=== PATIENT | female | born 1955 | race Caucasian/White ===

== ENCOUNTER 2017-07-07 16:01 | Inpatient (IN) | payer OTHER ==
[2017-07-07 18:45] VITALS: BMI 17.5
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
[2017-07-07] MEDS ORDERED: MENTHOL/PHENOL 1 EACH UD MM PRN (21:34)
[2017-07-07] MEDS ORDERED: P-EPHED 60MG/TRIPROLIDI 2.5MG TABLET PO PRN (21:34)
[2017-07-07] MEDS ORDERED: MAGNESIUM HYDROX 2400MG/30ML ORAL SUSPENSION 30 ML CUP PO PRN (21:34)
[2017-07-07] MEDS ORDERED: hydrOXYzine PAMOATE 50 MG CAPSULE (FP) PO PRN (21:34)
[2017-07-07] MEDS ORDERED: LOPERAMIDE HCL 2 MG CAPSULE PO PRN (21:34)
[2017-07-07] MEDS ORDERED: chlordiazePOXIDE HCL 25 MG CAPSULE PO PRN (21:34)
[2017-07-07] MEDS ORDERED: MAG HYDROX/AL HYDROX/SIMETH 30 ML UNIT-DOSE CUP PO PRN (21:34)
[2017-07-07] MEDS ORDERED: diphenhydrAMINE HCL 50 MG CAPSULE PO PRN (21:34)
[2017-07-07] MEDS ORDERED: ACETAMINOPHEN 325 MG TABLET (FP) PO PRN (21:34)
[2017-07-07] MEDS ORDERED: NICOTINE POLACRILEX 2 MG GUM BC PRN (21:34)
[2017-07-07] MEDS ORDERED: MAGNESIUM CITRATE 300 ML BOTTLE PO PRN (21:34)
[2017-07-07] MEDS ORDERED: IBUPROFEN 400 MG TABLET (FP) PO PRN (21:34)
[2017-07-07] MEDS: THIAMINE HCL 100 MG TABLET (FP) PO SCH (22:45)
[2017-07-07] MEDS: chlordiazePOXIDE HCL 25 MG CAPSULE PO SCH (22:45)
[2017-07-07] MEDS: NICOTINE 14 MG/24 HOURS TOPICAL PATCH TD SCH (23:01)
[2017-07-08] MEDS: chlordiazePOXIDE HCL 25 MG CAPSULE PO SCH ×4 (06:22→22:19)
[2017-07-08] MEDS ORDERED: METHADONE HCL 40 MG DISPERSABLE TABLET PO SCH (07:15)
[2017-07-08] MEDS ORDERED: METHADONE HCL 40 MG DISPERSABLE TABLET ONE (09:21)
[2017-07-08] MEDS ORDERED: METHADONE HCL 10 MG TABLET ONE (09:21)
[2017-07-08 09:59] LABS: MCH 30.4 pg (25.7-33.7); MEAN CELL VOLUME 91.9 fl (80-96); PLATELET COUNT 376 K/MM3 (134-434); RDW 14.8 % (11.6-15.6); WHITE BLOOD COUNT 4.7 K/mm3 (4.0-10.0)
[2017-07-08 10:01] LABS: ALBUMIN 2.8 g/dl (3.4-5.0); ANION GAP 5 (8-16); BILIRUBIN,TOTAL 0.4 mg/dL (0.2-1.0); CO2 29 mmol/L (21-32); GLUCOSE,RANDOM 95 mg/dL (74-106); SGOT/AST 15 U/L (15-37); SGPT/ALT 20 U/L (12-78); TOT PROT 5.5 g/dl (6.4-8.2)
[2017-07-08 10:04] LABS: ALK PHOS 79 U/L (45-117); CALCIUM 8.8 mg/dL (8.5-10.1); CREATININE 0.6 mg/dL (0.55-1.02)
[2017-07-08] MEDS: PRENATAL VITAMINS W/ FOLIC ACID TABLET (FP) PO SCH (10:18)
[2017-07-08] MEDS: ASPIRIN 81 MG CHEWABLE TABLETS PO SCH (10:18)
--- NOTE | 2017-07-08 10:18 | PN ---
S CIWA - CIWA Score Nausea/Vomitin Muscle Tremors: 3 Anxiety: 2 Agitation: 2 Paroxysmal Sweats: 1-Minimal Palms Moist Orientation: 0-Oriented Tacttile Disturbances: 1-Very Mild Itch/Numbness Auditory Disturbances: 1-Very Mild Visual Disturbances: 1-Very Mild Sensitivity Headache: 2-Mild CIWA-Ar Total Score: 16 S Progress Note (SOAP) Subjective: alert,irritable,anxious,interrupted sleep,tremor Objective: 07/08/17 10:17 Vital Signs Temperature 98.5 F 07/08/17 09:51 Pulse Rate 758 H 07/08/17 09:51 Respiratory Rate 18 07/08/17 09:51 Blood Pressure 150/100 07/08/17 09:51 O2 Sat by Pulse Oximetry (%) ekg nsr,normal ecg Laboratory Last Values WBC 4.7 K/mm3 (4.0-10.0) D 07/08/17 07:00 RBC 3.91 M/mm3 (3.60-5.2) 07/08/17 07:00 Hgb 11.9 GM/dL (10.7-15.3) 07/08/17 07:00 Hct 35.9 % (32.4-45.2) 07/08/17 07:00 MCV 91.9 fl (80-96) 07/08/17 07:00 MCH 30.4 pg (25.7-33.7) 07/08/17 07:00 MCHC 33.0 g/dl (32.0-36.0) 07/08/17 07:00 RDW 14.8 % (11.6-15.6) 07/08/17 07:00 Plt Count 376 K/MM3 (134-434) 07/08/17 07:00 MPV 7.0 fl (7.5-11.1) L D 07/08/17 07:00 Sodium 140 mmol/L (136-145) 07/08/17 07:00 Potassium 4.4 mmol/L (3.5-5.1) 07/08/17 07:00 Chloride 106 mmol/L (98-107) 07/08/17 07:00 Carbon Dioxide 29 mmol/L (21-32) 07/08/17 07:00 Anion Gap 5 (8-16) L 07/08/17 07:00 BUN 14 mg/dL (7-18) 07/08/17 07:00 Creatinine 0.6 mg/dL (0.55-1.02) D 07/08/17 07:00 Creat Clearance w eGFR > 60 (>60) 07/08/17 07:00 Random Glucose 95 mg/dL (74-106) 07/08/17 07:00 Calcium 8.8 mg/dL (8.5-10.1) 07/08/17 07:00 Total Bilirubin 0.4 mg/dL (0.2-1.0) 07/08/17 07:00 AST 15 U/L (15-37) 07/08/17 07:00 ALT 20 U/L (12-78) 07/08/17 07:00 Alkaline Phosphatase 79 U/L (45-117) 07/08/17 07:00 Total Protein 5.5 g/dl (6.4-8.2) L 07/08/17 07:00 Albumin 2.8 g/dl (3.4-5.0) L 07/08/17 07:00 Assessment: 07/08/17 10:18 withdrawal symptom Plan: continue detox
[2017-07-08] MEDS: METHADONE 40 MG, METHADONE 10 MG PO SCH (10:19)
[2017-07-08] MEDS: NICOTINE 14 MG/24 HOURS TOPICAL PATCH TD SCH (10:21)
[2017-07-08] MEDS ORDERED: ZOLPIDEM TARTRATE 10 MG TABLET (PARK CARE ONLY) PO PRN (16:11)
--- NOTE | 2017-07-08 16:58 | CONSULT ---
[facility] Psychiatric Consult - Data Date of interview: 07/08/17 Admission source: [facility] Identifying data: This is 61 years old female with psychiatric hospitalization history intoxicated with: Alcohol and Cociane Substance Abuse History: - Smoking Cessation. Smoking history: Current every day smoker. Have you smoked in the past 12 months: Yes. Aproximately how many cigarettes per day: 5. Cigars Per Day: 0. Hx Chewing Tobacco Use: No. Initiated information on smoking cessation: Yes. 'Breaking Loose' booklet given : 07/07/17. - Substance & Tx. History. Hx Alcohol Use: Yes. Hx Substance Use : Yes. Substance Use Type: Alcohol, Cocaine, Opiates. Hx Substance Use Treatment: Yes ([facility]). - Substances Abused. Alcohol. Route: Oral. Frequency: Daily. Amount used: liquor- 2 pints. Age of first use: 22. Date of Last Use: 07/06/17. HEROIN. Route: Inhalation. Frequency: 1-2 times per week. Amount used: 2 BAGS. Age of first use: 51. Date of Last Use: . COCAine. Route: Inhalation. Frequency: 1-3 times last 30 days. Amount used: 1/2 GM. Age of first use: 22. Date of Last Use: 07/06/17 Medical History: MMTP 50mg per day, Asthma Psychiatric History: Patient reports history of anxiety and depression, reports most recent psychiatoruc admiossion on: at [facility] for , reports taking prior to admission: Abilify 10mg poqd. Seroquel 50mg po bid. Ambien 10mg po qhs Physical/Sexual Abuse/Trauma History: Denies Additional Comment: Abilify 10mg poqd. Seroquel 50mg po bid. Ambien 10mg po qhs Mental Status Exam - Mental Status Exam Alert and Oriented to: Person Cognitive Function: Fair Patient Appearance: Unkempt Mood: Sad Patient Behavior: Cooperative Speech Pattern: Appropriate Voice Loudness: Mildly Soft/Quiet Thought Process: Circumstantial Thought Disorder: Being Controlled Hallucinations: Denies Suicidal Ideation: Denies Homicidal Ideation: Denies Insight/Judgement: Fair Sleep: Difficulty falling asleep Appetite: Fair Muscle strength/Tone: Normal Gait/Station: Shuffling Additional Comments: Abilify 10mg poqd. Seroquel 50mg po bid. Ambien 10mg po qhs Psychiatric Findings - Problem List ([place] 1, 2,3) (1) Alcohol dependence with uncomplicated withdrawal Current Visit: Yes Status: Chronic (2) Cocaine dependence, uncomplicated Current Visit: Yes Status: Chronic (3) Nicotine dependence Current Visit: Yes Status: Chronic Qualifiers: Nicotine product type: cigarettes Substance use status: uncomplicated Qualified Code(s): F17.210 - Nicotine dependence, cigarettes, uncomplicated (4) Uncomplicated opioid dependence Current Visit: Yes Status: Chronic (5) Alcohol dependence Current Visit: No Status: Active (6) Drug-induced mood disorder Current Visit: Yes Status: Acute - Initial Treatment Plan Initial Treatment Plan: Abilify 10mg poqd. Seroquel 50mg po bid. Ambien 10mg po qhs
[2017-07-08] MEDS: ARIPiprazole 10 MG TABLET PO SCH (17:40)
[2017-07-08] MEDS: QUEtiapine FUMARATE 50 MG TABLET PO SCH (22:19)
[2017-07-08] MEDS: THIAMINE HCL 100 MG TABLET (FP) PO SCH (22:19)
[2017-07-08] MEDS: guaiFENesin/D-METHORPHAN HB 10 ML UNIT-DOSE CUPS PO PRN (22:19)
--- NOTE | 2017-07-08 22:33 | EKG ---
Test Reason : Blood Pressure : / mmHG Vent. Rate : 068 BPM Atrial Rate : 068 BPM P-R Int : 152 ms QRS Dur : 072 ms QT Int : 406 ms P-R-T Axes : 067 -26 052 degrees QTc Int : 431 ms NORMAL SINUS RHYTHM ATRIAL ABNORMALITY NONSPECIFIC ST-T ABNORMALITIES NO PREVIOUS ECGS AVAILABLE REPEAT EKG IF CLINICALLY INDICATED Confirmed by RAULITO TREADWELL MD ([id number]) on 07/08/2017 10:33:01 PM Referred By: Confirmed By:RAULITO TREADWELL MD
[2017-07-09] MEDS ORDERED: METHADONE HCL 10 MG TABLET ONE (04:09)
[2017-07-09] MEDS ORDERED: METHADONE HCL 40 MG DISPERSABLE TABLET ONE (04:09)
[2017-07-09] MEDS: chlordiazePOXIDE HCL 25 MG CAPSULE PO SCH ×3 (06:13→17:27)
[2017-07-09] MEDS: METHADONE 40 MG, METHADONE 10 MG PO SCH (06:13)
[2017-07-09] MEDS: guaiFENesin/D-METHORPHAN HB 10 ML UNIT-DOSE CUPS PO PRN ×3 (08:14→20:28)
[2017-07-09] MEDS ORDERED: CYCLOBENZAPRINE HCL 10 MG TABLET (FP) PO PRN (10:00)
[2017-07-09] MEDS: ASPIRIN 81 MG CHEWABLE TABLETS PO SCH (10:19)
[2017-07-09] MEDS: ARIPiprazole 10 MG TABLET PO SCH (10:19)
[2017-07-09] MEDS: PRENATAL VITAMINS W/ FOLIC ACID TABLET (FP) PO SCH (10:19)
[2017-07-09] MEDS: QUEtiapine FUMARATE 50 MG TABLET PO SCH ×2 (10:19→22:04)
[2017-07-09] MEDS: NICOTINE 14 MG/24 HOURS TOPICAL PATCH TD SCH (10:20)
[2017-07-09] MEDS ORDERED: ALBUTEROL SO4 6.7 GM HFA INHALER IH PRN (10:24)
[2017-07-09] MEDS ORDERED: CYCLOBENZAPRINE HCL 10 MG TABLET (FP) PO ONE (10:25)
--- NOTE | 2017-07-09 11:17 | PN ---
S CIWA - CIWA Score Nausea/Vomitin Muscle Tremors: 3 Anxiety: 2 Agitation: 2 Paroxysmal Sweats: No Perspiration Orientation: 0-Oriented Tacttile Disturbances: 1-Very Mild Itch/Numbness Auditory Disturbances: 1-Very Mild Visual Disturbances: 1-Very Mild Sensitivity Headache: 2-Mild CIWA-Ar Total Score: 15 S Progress Note (SOAP) Subjective: alert,irritable,anxious,interrupted,wheezing Objective: 07/09/17 11:17 Vital Signs Temperature 97.5 F L 07/09/17 09:29 Pulse Rate 102 H 07/09/17 09:29 Respiratory Rate 16 07/09/17 09:29 Blood Pressure 137/73 07/09/17 09:29 O2 Sat by Pulse Oximetry (%) 07/09/17 11:19 Laboratory Last Values WBC 4.7 K/mm3 (4.0-10.0) D 07/08/17 07:00 RBC 3.91 M/mm3 (3.60-5.2) 07/08/17 07:00 Hgb 11.9 GM/dL (10.7-15.3) 07/08/17 07:00 Hct 35.9 % (32.4-45.2) 07/08/17 07:00 MCV 91.9 fl (80-96) 07/08/17 07:00 MCH 30.4 pg (25.7-33.7) 07/08/17 07:00 MCHC 33.0 g/dl (32.0-36.0) 07/08/17 07:00 RDW 14.8 % (11.6-15.6) 07/08/17 07:00 Plt Count 376 K/MM3 (134-434) 07/08/17 07:00 MPV 7.0 fl (7.5-11.1) L D 07/08/17 07:00 Sodium 140 mmol/L (136-145) 07/08/17 07:00 Potassium 4.4 mmol/L (3.5-5.1) 07/08/17 07:00 Chloride 106 mmol/L (98-107) 07/08/17 07:00 Carbon Dioxide 29 mmol/L (21-32) 07/08/17 07:00 Anion Gap 5 (8-16) L 07/08/17 07:00 BUN 14 mg/dL (7-18) 07/08/17 07:00 Creatinine 0.6 mg/dL (0.55-1.02) D 07/08/17 07:00 Creat Clearance w eGFR > 60 (>60) 07/08/17 07:00 Random Glucose 95 mg/dL (74-106) 07/08/17 07:00 Calcium 8.8 mg/dL (8.5-10.1) 07/08/17 07:00 Total Bilirubin 0.4 mg/dL (0.2-1.0) 07/08/17 07:00 AST 15 U/L (15-37) 07/08/17 07:00 ALT 20 U/L (12-78) 07/08/17 07:00 Alkaline Phosphatase 79 U/L (45-117) 07/08/17 07:00 Total Protein 5.5 g/dl (6.4-8.2) L 07/08/17 07:00 Albumin 2.8 g/dl (3.4-5.0) L 07/08/17 07:00 RPR Titer Reactive 1:4 (NONREACTIVE) H 07/08/17 07:00 T.pallidum Ab (MHA) Previously reactive (NONREACTIVE) 07/08/17 07:00 Hepatitis C Antibody 0.1 s/co ratio (0.0-0.9) 07/07/17 07:00 patient had been treated for syphilis in the past Assessment: 07/09/17 11:20 withdrawal symptom Plan: continue detox,albuterol inhaler,ensure plus 120 mls po bid
[2017-07-09] MEDS: THIAMINE HCL 100 MG TABLET (FP) PO SCH (22:04)
[2017-07-09] MEDS: chlordiazePOXIDE 5 MG CAPSULE PO SCH (22:04)
[2017-07-10] MEDS ORDERED: METHADONE HCL 40 MG DISPERSABLE TABLET ONE (03:52)
[2017-07-10] MEDS ORDERED: METHADONE HCL 10 MG TABLET ONE (03:52)
[2017-07-10] MEDS: METHADONE 40 MG, METHADONE 10 MG PO SCH (06:36)
[2017-07-10] MEDS: chlordiazePOXIDE 5 MG CAPSULE PO SCH ×3 (06:36→17:39)
[2017-07-10] MEDS: guaiFENesin/D-METHORPHAN HB 10 ML UNIT-DOSE CUPS PO PRN (10:18)
[2017-07-10] MEDS: ASPIRIN 81 MG CHEWABLE TABLETS PO SCH (10:19)
[2017-07-10] MEDS: QUEtiapine FUMARATE 50 MG TABLET PO SCH ×2 (10:19→23:44)
[2017-07-10] MEDS: PRENATAL VITAMINS W/ FOLIC ACID TABLET (FP) PO SCH (10:19)
[2017-07-10] MEDS: NICOTINE 14 MG/24 HOURS TOPICAL PATCH TD SCH (10:19)
[2017-07-10] MEDS: ARIPiprazole 10 MG TABLET PO SCH (10:19)
--- NOTE | 2017-07-10 12:26 | PN ---
S Progress Note (SOAP) Subjective: alert,interrupted sleep, Objective: 07/10/17 12:25 Vital Signs Temperature 98.8 F 07/10/17 09:44 Pulse Rate 95 H 07/10/17 09:44 Respiratory Rate 16 07/10/17 09:44 Blood Pressure 110/71 07/10/17 09:44 O2 Sat by Pulse Oximetry (%) Assessment: 07/10/17 12:25 withdrawal symptom Plan: continue detox,discharge in am
--- NOTE | 2017-07-10 15:26 | PN ---
[facility] Progress Note Note: called to evaluate patient who fell ,slipped off the chair no head injury complaint of pain in the back,right hip and right foot ambulation with pain bp 132/60,p83,r16,t96.7 no painin the neck fall treatment initiate fall protocol 2 fall precaution to er for evaluation and treatment spoke with Macey rooney rn at [facility] to be transported by [facility]
[2017-07-10 16:10] LABS: URINE APPEARANCE CLOUDY; URINE BILIRUBIN NEGATIVE (NEGATIVE); URINE BLOOD NEGATIVE (NEGATIVE); URINE COLOR AMBER; URINE GLUCOSE (UA) NEGATIVE (NEGATIVE); URINE KETONE NEGATIVE (NEGATIVE); URINE NITRITE NEGATIVE (NEGATIVE); URINE PROTEIN NEGATIVE (NEGATIVE); URINE UROBILINOGEN NEGATIVE mg/dL (0.2-1.0)
[2017-07-10 16:14] LABS: URINE LEUK ESTERASE 1+ (NEGATIVE)
[2017-07-10 16:16] LABS: CALCIUM OXALATE CRYSTALS RARE /hpf (NONE SEEN); URINE BACTERIA RARE /hpf (NONE SEEN); URINE HYALINE CAST 1 /lpf; URINE MUCUS FEW; URINE RBC 12 /hpf (0-3); URINE WBC 7 /hpf (3-5)
[2017-07-10] MEDS: chlordiazePOXIDE HCL 10 MG CAPSULE PO SCH (23:44)
[2017-07-10] MEDS: THIAMINE HCL 100 MG TABLET (FP) PO SCH (23:44)
[2017-07-11] MEDS: METHADONE 40 MG, METHADONE 10 MG PO SCH (08:00)
[2017-07-11] MEDS ORDERED: METHADONE HCL 10 MG TABLET PO ONE (08:14)
[2017-07-11] MEDS ORDERED: chlordiazePOXIDE HCL 10 MG CAPSULE PO ONE (08:14)
[2017-07-11] MEDS ORDERED: METHADONE 40 MG, METHADONE 10 MG PO ONE (08:20)
--- NOTE | 2017-07-11 08:34 | PN ---
S Progress Note (SOAP) Subjective: patient has history of a fall yesterday evaluated in [facility] er,clear to return to detox Objective: 07/11/17 08:30 Vital Signs Temperature 98.1 F 07/11/17 07:27 Pulse Rate 79 07/11/17 07:27 Respiratory Rate 18 07/11/17 07:27 Blood Pressure 136/84 07/11/17 07:27 O2 Sat by Pulse Oximetry (%) patient is ambulating 07/11/17 08:31 Assessment: 07/11/17 08:32 07/11/17 08:32 on fall protocol 2 observation Plan: continue detox and observation,hold discharge today,discharge 0n 07/11/17 at 0700 cane for ambulatory aid
--- NOTE | 2017-07-11 08:35 | PN ---
[facility] Progress Note Note: correction discharge in am on 07/12/17 at 0700
[2017-07-11] MEDS ORDERED: METHADONE HCL 10 MG TABLET ONE (09:14)
[2017-07-11] MEDS ORDERED: METHADONE HCL 40 MG DISPERSABLE TABLET ONE (09:14)
[2017-07-11] MEDS ORDERED: ASPIRIN 81 MG CHEWABLE TABLETS ONE (09:16)
[2017-07-11 09:48] VITALS: BP 140/84; PULSE 90; TEMP 97.1
[2017-07-11] MEDS: PRENATAL VITAMINS W/ FOLIC ACID TABLET (FP) PO SCH (10:00)
[2017-07-11] MEDS: ASPIRIN 81 MG CHEWABLE TABLETS PO SCH (10:00)
[2017-07-11] MEDS: chlordiazePOXIDE HCL 10 MG CAPSULE PO SCH (10:02)
[2017-07-11] MEDS: NICOTINE 14 MG/24 HOURS TOPICAL PATCH TD SCH (10:02)
[2017-07-11] MEDS: ARIPiprazole 10 MG TABLET PO SCH (10:30)
[2017-07-11] MEDS: QUEtiapine FUMARATE 50 MG TABLET PO SCH (10:30)
--- NOTE | 2017-07-11 11:15 | PN ---
S Progress Note Note: alert,no complaint,stable for discharge,follow up with after care program as arrangement, ct of chest venous droppler negative stable for discharge today
--- NOTE | 2017-07-11 11:20 | DS ---
[facility] Detox Discharge Summary Admission Date: 07/07/17 Discharge Date: 07/11/17 - History Present History: Alcohol Dependence, Cocaine Dependence, MMTP Additional Comments: history of fall,seen in er at [facility] ,follow up with after care program as arrangement Pertinent Past History: asthma nicotine dependence copd fall - Physical Exam Results Vital Signs: Vital Signs Temperature 97.1 F L 07/11/17 09:47 Pulse Rate 90 07/11/17 09:47 Respiratory Rate 16 07/11/17 09:47 Blood Pressure 140/84 07/11/17 09:47 O2 Sat by Pulse Oximetry (%) Pertinent Admission Physical Exam Findings: withdrawal symptom - Treatment Hospital Course: Detox Protocol Followed, Detoxed Safely, Responded well, Discharged Condition Good Patient has Accepted a Rehab Referral to: delined - Medication Discharge Medications: Ambulatory Orders Zolpidem Tartrate [Ambien] 10 mg PO HS 07/15/12 Aspirin [ASA -] 81 mg PO DAILY 07/07/17 Aripiprazole [Abilify -] 10 mg PO DAILY #30 tablet 07/08/17 Quetiapine Fumarate [Seroquel -] 50 mg PO BID #60 tablet 07/08/17 Albuterol Sulfate Inhaler - [Ventolin HFA Inhaler -] 1 puff IN QID PRN 07/10/17 Chlordiazepoxide [Librium -] 10 mg PO QID 07/10/17 Chlordiazepoxide [Librium -] 15 mg PO QID 07/10/17 Chlordiazepoxide [Librium -] 25 mg PO QID PRN 07/10/17 Cyclobenzaprine HCl [Flexeril 10 mg] 10 mg PO TID PRN 07/10/17 Diphenhydramine [Benadryl Capsule -] 50 mg PO HS PRN 07/10/17 Hydroxyzine Pamoate [Vistaril -] 50 mg PO QID PRN 07/10/17 Mag Hydrox/Al Hydrox/Simeth [Mylanta Oral Suspension -] 30 ml PO PRN 07/10/17 Nicotine Patch [Nicoderm Patch -] 1 patch TD DAILY 07/10/17 P-Ephed 60Mg/Triprolidi 2.5MG [Actifed -] 1 tab PO PRN 07/10/17 Vit Calc,Iron,Folic [ Vitamins] 1 tab PO DAILY 07/10/17 Thiamine HCl [B-1] 100 mg PO HS 07/10/17 Levofloxacin [Levaquin -] 500 mg PO DAILY #10 tablet 07/11/17 - Diagnosis (1) Alcohol dependence with uncomplicated withdrawal Current Visit: Yes Status: Chronic (2) Asthma Current Visit: Yes Status: Chronic (3) Cocaine dependence, uncomplicated Current Visit: Yes Status: Chronic (4) Nicotine dependence Current Visit: Yes Status: Chronic Qualifiers: Nicotine product type: cigarettes Substance use status: uncomplicated Qualified Code(s): F17.210 - Nicotine dependence, cigarettes, uncomplicated - AMA Did Patient Leave Against Medical Advice: No
[2017-07-12] MEDS ORDERED: LEVOFLOXACIN 500 MG TABLET (FP) PO SCH (10:00)
== END 2017-07-11 11:35 | disposition home or self-care (01) | DRG 773 ==
LOC: YASAS 16:01 → Y6N 20:39 → UNDODISIN 07-10 16:11
PROVIDERS: ADMIT Internal Medicine; ATTEND Internal Medicine
PROC: HZ2ZZZZ Detoxification Services for Substance Abuse Treatment (ICD-10-PCS; principal; 2017-07-07)
DX: F11.20 Opioid dependence, uncomplicated (principal); F10.230 Alcohol dependence with withdrawal, uncomplicated; F14.20 Cocaine dependence, uncomplicated; F17.210 Nicotine dependence, cigarettes, uncomplicated; F19.24 Other psychoactive substance dependence with psychoactive substance-induced mood disorder; F32.9 Major depressive disorder, single episode, unspecified; J45.909 Unspecified asthma, uncomplicated
CPT/HCPCS: 36415; 80053; 81003; 81015; 85027; 86593; 86780; 86803; 93005; 93010

== ENCOUNTER 2017-07-10 16:36 | Emergency (ER) | payer OTHER ==
[2017-07-10 17:34] VITALS: TEMP 98.1; BMI 22.4
--- NOTE | 2017-07-10 17:41 | PDOC ---
History of Present Illness - General Chief Complaint: Injury Stated Complaint: FALL Time Seen by Provider: 07/10/17 16:51 History Source: Patient Exam Limitations: No Limitations - History of Present Illness Initial Comments: 07/10/17 17:35 The patient is a 61F with a PMH of heroine abuse, bipolar disorder, and asthma who presents to the ED after falling at her detox facility. The patient states that her legs cramped after she stood up from a chair and she fell over. She did not lose consciousness but hit her head. She denies taking any blood thinners. The patient states that she was previously diagnosed with DVT's and was taking coumadin but her PCP . Past History - Past Medical History Allergies/Adverse Reactions: Allergies Allergy/AdvReac Type Severity Reaction Status Date / Time No Known Allergies Allergy Verified 07/11/17 02:18 Home Medications: Ambulatory Orders Zolpidem Tartrate [Ambien] 10 mg PO HS 07/15/12 Aspirin [ASA -] 81 mg PO DAILY 07/07/17 Aripiprazole [Abilify -] 10 mg PO DAILY #30 tablet 07/08/17 Quetiapine Fumarate [Seroquel -] 50 mg PO BID #60 tablet 07/08/17 Albuterol Sulfate Inhaler - [Ventolin HFA Inhaler -] 1 puff IN QID PRN 07/10/17 Chlordiazepoxide [Librium -] 10 mg PO QID 07/10/17 Chlordiazepoxide [Librium -] 15 mg PO QID 07/10/17 Chlordiazepoxide [Librium -] 25 mg PO QID PRN 07/10/17 Cyclobenzaprine HCl [Flexeril 10 mg] 10 mg PO TID PRN 07/10/17 Diphenhydramine [Benadryl Capsule -] 50 mg PO HS PRN 07/10/17 Hydroxyzine Pamoate [Vistaril -] 50 mg PO QID PRN 07/10/17 Mag Hydrox/Al Hydrox/Simeth [Mylanta Oral Suspension -] 30 ml PO PRN 07/10/17 Nicotine Patch [Nicoderm Patch -] 1 patch TD DAILY 07/10/17 P-Ephed 60Mg/Triprolidi 2.5MG [Actifed -] 1 tab PO PRN 07/10/17 Vit Calc,Iron,Folic [ Vitamins] 1 tab PO DAILY 07/10/17 Thiamine HCl [B-1] 100 mg PO HS 07/10/17 Levofloxacin [Levaquin -] 500 mg PO DAILY #10 tablet 07/11/17 Anemia: No Asthma: Yes (tx albuterol) Cancer: No Cardiac Disorders: No CVA: No COPD: No CHF: No Dementia: No Diabetes: No GI Disorders: No Disorders: No HTN: No Hypercholesterolemia: No Kidney Stones: No Psychiatric Problems: Yes (Heroin abuse) Seizures: No - Surgical History Abdominal Surgery: No Appendectomy: No Cardiac Surgery: No Cholecystectomy: No Lung Surgery: No Neurologic Surgery: No Orthopedic Surgery: No - Reproductive History PID: No - Suicide/Smoking/Psychosocial Hx Smoking History: Current every day smoker Have you smoked in the past 12 months: Yes Number of Cigarettes Smoked Daily: 2 Cigars Per Day: 0 Information on smoking cessation initiated: Yes 'Breaking Loose' booklet given: 07/10/17 Hx Alcohol Use: No Drug/Substance Use Hx: Yes (heroin) Substance Use Type: Alcohol, Cocaine, Opiates Hx Substance Use Treatment: Yes ([facility]) Review of Systems - Review of Systems Able to Perform ROS?: Yes Is the patient limited Micronesian proficient: No Constitutional: No: Chills, Fever Respiratory: Yes: Shortness of Breath Cardiac (ROS): Yes: Chest Pain (chronic) ABD/GI: Yes: Constipated, Diarrhea, Nausea, Vomiting *Physical Exam - Vital Signs Last Vital Signs Temp Pulse Resp BP Pulse Ox 98.1 F 86 20 115/56 100 07/10/17 17:07/10/17 17:07/10/17 17:09 07/10/17 17:07/10/17 17:09 - Physical Exam General Appearance: Yes: Nourished, Appropriately Dressed. No: Apparent Distress HEENT: positive: Normal Voice, Hearing Grossly Normal Respiratory/Chest: positive: Rhonchi (b/l lung soliz). negative: Chest Tender , Lungs Clear, Normal Breath Sounds Cardiovascular: positive: Regular Rhythm, Regular Rate, S1, S2. negative: Diastolic Murmur, Systolic Murmur Gastrointestinal/Abdominal: positive: Flat, Soft. negative: Tender, Protuberent , Distended, Guarding, Rebound Musculoskeletal: negative: CVA Tenderness (R), CVA Tenderness (L) Extremity: positive: Normal Inspection, Normal Range of Motion Integumentary: positive: Dry, Warm Neurologic: positive: Alert ED Treatment Course - LABORATORY CBC & Chemistry Diagram: 07/10/17 16:46 07/10/17 20:00 - RADIOLOGY Radiology Studies Ordered: Category Date Time Status CHEST PA & LAT [RAD] Stat Radiology 07/10/17 17:18 Ordered DUPLEX VASCUL US-1 LEG [US] Stat Ultrasound 07/10/17 17:29 Ordered Medical Decision Making - Medical Decision Making 07/10/17 18:08 The patient is a 61F with a PMH of bipolar disorder, heroine abuse, and asthma who presents to the ED with complaints of cramping and a blood clot in her legs. Basic labs and duplex ordered. Will reassess when labs/imaging return. 07/10/17 18:52 No white count. CXR shows possible mild congestion and trace R pleural effusion. Pending US results, chem, cardiac profile. 07/16/17 19:25 Patient signed out to Dr. Fallon. *DC/Admit/Observation/Transfer Diagnosis at time of Disposition: Leg weakness - Discharge Dispostion Disposition: AGAINST MEDICAL ADVICE Condition at time of disposition: Stable
[2017-07-10 18:01] LABS: BASOPHIL 0.6 % (0-2.0); EOSINOPHIL 3.5 % (0-4.5); MCH 31.1 pg (25.7-33.7); MCHC 34.1 g/dl (32.0-36.0); MEAN PLT VOLUME 7.3 fl (7.5-11.1); NEUTROPHILS 70.9 % (42.8-82.8); PLATELET COUNT 434 K/MM3 (134-434); RDW 15.2 % (11.6-15.6); WHITE BLOOD COUNT 8.9 K/mm3 (4.0-10.0)
--- NOTE | 2017-07-10 18:08 | PDOC ---
Attending Attestation - Resident Resident Name: Reed Prater - ED Attending Attestation I have performed the following: I have examined & evaluated the patient, The case was reviewed & discussed with the resident, I agree w/resident's findings & plan, Exceptions are as noted - HPI HPI: 07/10/17 17:51 61 F with h/o RLE DVT noncompliant with coumadin, opiate abuse at rehab for detox, presenting today with fall. Pt states that her right leg cramped up, causing her to trip and fall. Pt reports that she landed onto her R knee. Reports bumping her head but denies LOC. She was able to get up and ambulate immediately afterwards. Pt denies any lightheadedness/CP/SOB prior to falling. States that she has had a cough for 2 days but denies difficulty breathing. Denies F/C. Pt now reports some mild persistent cramping in her R lower leg. Endorses mild swelling initially to her R edwards but denies any currently. - Physicial Exam PE: 07/10/17 17:55 "GENERAL: Awake, alert, and fully oriented, in no acute distress HEAD: No signs of trauma EYES: PERRLA, EOMI, sclera anicteric, conjunctiva clear ENT: Auricles normal inspection, hearing grossly normal, nares patent, oropharynx clear without exudates. Moist mucosa NECK: Nontender, no stepoffs, Normal ROM, supple, no lymphadenopathy, JVD, or masses LUNGS: Breath sounds equal, coarse breath sounds bilaterally with rales. No wheezes HEART: Regular rate and rhythm, normal S1 and S2, no murmurs, rubs or gallops ABDOMEN: Soft, nontender, normoactive bowel sounds. No guarding, no rebound. No masses EXTREMITIES: Normal range of motion, no edema. No clubbing or cyanosis. No cords, erythema, or tenderness NEUROLOGICAL: Cranial nerves II through XII intact. 5/5 strength and sensation in all extremities, Normal speech, normal gait SKIN: Warm, Dry, normal turgor, no rashes or lesions noted. " - Medical Decision Making 07/10/17 17:56 61 F with h/o DVT noncompliant with coumadin presents to ER with R leg cramp and fall. Concerning for potential recurrent or worsening RLE DVT, though exam does not show any leg swelling or calf tenderness. NO neuro deficits on exam to suggest epidural abscess or spinal cord injury as cause of leg cramp. Pt reports cough but DENIES CP/SOB. Cough is likely infectious in nature but will r /o PE given h/o DVT. Pt endorses headstrike but denies headache, has no external signs of trauma, has no N/V, and is not currently on AC. CT head not indicated by [place] or kittitian head CT rules. - Labs, ddimer - LE doppler - CTPE if indicated 07/10/17 21:15 Pt with elevated Ddimer. Discussed with pt need for CT to r/o PE. However, pt refusing to stay for study. The patient is clinically sober, free from distracting injury, appears to have intact insight and judgment and reason and in my opinion has the capacity to make decisions. The patient presented with cough and h/o DVT. I have explained that I am concerned that this may represent a blood clot in her lungs; they have verbalized an understanding of my concerns. I informed the patient of her abnormal blood tests and the necessity of a CT scan to rule out a blood clot in her lungs. I have told the patient that if they leave and have chest pain or shortness of breath, they could get much worse, could become critically ill, and could possibly become disabled or . I asked the patient repeatedly to stay for the CT scan, but the patient is not willing to wait for it. She is unwilling to stay overnight for monitoring. She is refusing any further care and is leaving against medical advice. I am unable to convince the patient to stay, I have asked them to return as soon as possible to complete their evaluation. I have answered all their questions.
[2017-07-10 20:39] LABS: INR 1.02 (0.82-1.09); PROTHROMBIN TIME (PATIENT) 11.2 SEC (9.98-11.88)
[2017-07-10 20:42] LABS: ACTIVATED PTT 30.4 SECONDS (26.9-34.4)
[2017-07-10 21:02] LABS: ALBUMIN 3.1 g/dl (3.4-5.0); ANION GAP 5 (8-16); CALCIUM 8.6 mg/dL (8.5-10.1); CO2 29 mmol/L (21-32); CREATININE 0.6 mg/dL (0.55-1.02); GLUCOSE,RANDOM 95 mg/dL (74-106); SGOT/AST 12 U/L (15-37); SGPT/ALT 18 U/L (12-78)
[2017-07-10 21:05] LABS: ALK PHOS 90 U/L (45-117); BILIRUBIN,TOTAL 0.5 mg/dL (0.2-1.0); CPK 76 IU/L (26-192); TOT PROT 6.1 g/dl (6.4-8.2); TROPONIN I < 0.02 ng/ml (0.00-0.05)
--- NOTE | 2017-07-10 21:24 | PDOC ---
*Physical Exam - Vital Signs Last Vital Signs Temp Pulse Resp BP Pulse Ox 98.1 F 86 20 115/56 100 07/10/17 17:09 07/10/17 17:09 07/10/17 17:09 07/10/17 17:09 07/10/17 17:09 ED Treatment Course - LABORATORY CBC & Chemistry Diagram: 07/10/17 16:46 07/10/17 20:00 - ADDITIONAL ORDERS Additional order review: Laboratory Results 07/10/17 07/10/17 07/10/17 20:00 20:00 16:46 PT with INR 11.20 INR 1.02 PTT (Actin FS) 30.4 D-Dimer 253 H Cancelled Sodium 137 Potassium 4.1 Chloride 103 Carbon Dioxide 29 Anion Gap 5 L BUN 11 D Creatinine 0.6 Creat Clearance w eGFR > 60 Random Glucose 95 Calcium 8.6 Total Bilirubin 0.5 D AST 12 L ALT 18 Alkaline Phosphatase 90 Creatine Kinase 76 Troponin I < 0.02 Total Protein 6.1 L Albumin 3.1 L 07/10/17 16:46 PT with INR INR PTT (Actin FS) D-Dimer Sodium Cancelled Potassium Cancelled Chloride Cancelled Carbon Dioxide Cancelled Anion Gap Cancelled BUN Cancelled Creatinine Cancelled Creat Clearance w eGFR Cancelled Random Glucose Cancelled Calcium Cancelled Total Bilirubin Cancelled AST Cancelled ALT Cancelled Alkaline Phosphatase Cancelled Creatine Kinase Troponin I Total Protein Cancelled Albumin Cancelled 07/10/17 16:46 RBC 3.44 L MCV 91.0 MCHC 34.1 RDW 15.2 MPV 7.3 L Neutrophils % 70.9 Lymphocytes % 17.7 Monocytes % 7.3 Eosinophils % 3.5 Basophils % 0.6 - RADIOLOGY Radiology Studies Ordered: Category Date Time Status CHEST CTA [CT] Stat CT Scan 07/10/17 20:58 Ordered Medical Decision Making - Medical Decision Making 61 year old female signed out to me in stable condition by Dr. Prater pending CMP results. Patient's D-dimer was also elevated so we wanted to pursue a CT to rule ot PE but patient refused and signed out AMA. The risks and benefits were explained to the patient and she was ambulating without difficulty. 07/10/17 21:20 *DC/Admit/Observation/Transfer Diagnosis at time of Disposition: Leg weakness - Discharge Dispostion Disposition: AGAINST MEDICAL ADVICE Condition at time of disposition: Stable Admit: No
[2017-07-10 22:40] VITALS: BP 108/60; PULSE 82
--- NOTE | 2017-07-11 09:16 | EKG ---
Test Reason : Blood Pressure : / mmHG Vent. Rate : 077 BPM Atrial Rate : 077 BPM P-R Int : 154 ms QRS Dur : 076 ms QT Int : 384 ms P-R-T Axes : 054 -44 046 degrees QTc Int : 434 ms NORMAL SINUS RHYTHM LEFT AXIS DEVIATION ABNORMAL ECG WHEN COMPARED WITH ECG OF 07-JUL-2017 21:16, NO SIGNIFICANT CHANGE WAS FOUND Confirmed by LUKE MADDEN MD ([id number]) on 07/11/2017 9:15:43 AM Referred By: Confirmed By:LUKE MADDEN MD
== END 2017-07-10 21:00 | disposition left against medical advice (07) ==
LOC: JER 16:36
DX: M62.81 Muscle weakness (generalized) (principal); F31.9 Bipolar disorder, unspecified; F11.10 Opioid abuse, uncomplicated; J45.909 Unspecified asthma, uncomplicated; W18.39XA Other fall on same level, initial encounter; Y93.9 Activity, unspecified; Y92.238 Other place in hospital as the place of occurrence of the external cause
CPT/HCPCS: 36415; 71020-TC; 80053; 84484; 85025; 85379; 85610; 85730; 93005; 93010; 93971-TC; 99282-25

== ENCOUNTER 2017-07-11 01:36 | Emergency (ER) | payer OTHER ==
--- NOTE | 2017-07-11 01:47 | PDOC ---
History of Present Illness - General Stated Complaint: [facility]ICAL CLEAR[facility] Time Seen by Provider: 07/11/17 01:47 - History of Present Illness Initial Comments: The patient is a 61F with a PMH of heroine abuse, bipolar disorder, and asthma who represents to the ED a few hours after leaving AMA in need of a CTA for a positive D-dimer. She was originally in the ED after presenting from [facility] where she had leg cramps while standing up from a chair fell over. She did not lose consciousness but hit her head. The patient states that she was previously diagnosed with DVT's and was taking Coumadin but her PCP and hasn't taken blood thinners in at least a few weeks. 07/11/17 04:45 Past History - Past Medical History Allergies/Adverse Reactions: Allergies Allergy/AdvReac Type Severity Reaction Status Date / Time No Known Allergies Allergy Verified 07/11/17 02:18 Home Medications: Ambulatory Orders Zolpidem Tartrate [Ambien] 10 mg PO HS 07/15/12 Aspirin [ASA -] 81 mg PO DAILY 07/07/17 Aripiprazole [Abilify -] 10 mg PO DAILY #30 tablet 07/08/17 Quetiapine Fumarate [Seroquel -] 50 mg PO BID #60 tablet 07/08/17 Albuterol Sulfate Inhaler - [Ventolin HFA Inhaler -] 1 puff IN QID PRN 07/10/17 Chlordiazepoxide [Librium -] 10 mg PO QID 07/10/17 Chlordiazepoxide [Librium -] 15 mg PO QID 07/10/17 Chlordiazepoxide [Librium -] 25 mg PO QID PRN 07/10/17 Cyclobenzaprine HCl [Flexeril 10 mg] 10 mg PO TID PRN 07/10/17 Diphenhydramine [Benadryl Capsule -] 50 mg PO HS PRN 07/10/17 Hydroxyzine Pamoate [Vistaril -] 50 mg PO QID PRN 07/10/17 Mag Hydrox/Al Hydrox/Simeth [Mylanta Oral Suspension -] 30 ml PO PRN 07/10/17 Nicotine Patch [Nicoderm Patch -] 1 patch TD DAILY 07/10/17 P-Ephed 60Mg/Triprolidi 2.5MG [Actifed -] 1 tab PO PRN 07/10/17 Vit Calc,Iron,Folic [ Vitamins] 1 tab PO DAILY 07/10/17 Thiamine HCl [B-1] 100 mg PO HS 07/10/17 Albuterol Sulfate Inhaler - [Ventolin HFA Inhaler -] 2 puff IH Q4H PRN #1 inhaler 07/11/17 Levofloxacin [Levaquin -] 500 mg PO DAILY #10 tablet 07/11/17 Levofloxacin [Levaquin -] 500 mg PO DAILY@0600 #5 tablet 07/11/17 Anemia: No Asthma: Yes (tx albuterol) Cancer: No Cardiac Disorders: No CVA: No COPD: No CHF: No Dementia: No Diabetes: No GI Disorders: No Disorders: No HTN: No Hypercholesterolemia: No Kidney Stones: No Psychiatric Problems: Yes (Heroin abuse) Seizures: No - Surgical History Abdominal Surgery: No Appendectomy: No Cardiac Surgery: No Cholecystectomy: No Lung Surgery: No Neurologic Surgery: No Orthopedic Surgery: No - Reproductive History PID: No - Suicide/Smoking/Psychosocial Hx Smoking History: Current every day smoker Have you smoked in the past 12 months: Yes Number of Cigarettes Smoked Daily: 2 Cigars Per Day: 0 'Breaking Loose' booklet given: 07/10/17 Hx Alcohol Use: Yes Drug/Substance Use Hx: Yes (heroin) Substance Use Type: Alcohol, Cocaine, Opiates Hx Substance Use Treatment: Yes ([facility]) *Physical Exam - Physical Exam General Appearance: Yes: Appropriately Dressed, Thin. No: Apparent Distress HEENT: positive: EOMI, BERNY, Normal Voice Neck: positive: Trachea midline, Normal Thyroid, Supple. negative: Tender, Rigid Respiratory/Chest: positive: Rhonchi (Bilaterally). negative: Chest Tender, Lungs Clear, Normal Breath Sounds, Respiratory Distress, Accessory Muscle Use Cardiovascular: positive: Regular Rhythm, Regular Rate, S1, S2. negative: Edema , JVD, Murmur Gastrointestinal/Abdominal: positive: Normal Bowel Sounds, Flat, Soft. negative : Tender Extremity: positive: Normal Inspection, Normal Range of Motion. negative: Tender Integumentary: positive: Normal Color, Dry, Warm Neurologic: positive: Fully Oriented, Alert. negative: Normal Mood/Affect ( Easily aggitated) Medical Decision Making - Medical Decision Making CTA negative for PE will DC patient home with prescription for Levaquin x 10 days after one dose in the ED for possible PNA. 07/11/17 04:46 *DC/Admit/Observation/Transfer Diagnosis at time of Disposition: Fall, PNA (pneumonia) - Discharge Dispostion Disposition: HALF-WAY FACILITY Condition at time of disposition: Improved Admit: No - Prescriptions Prescriptions: Levofloxacin [Levaquin -] 500 mg PO DAILY #10 tablet - Referrals Referrals: STAFF,NOT ON [Primary Care Provider] - - Patient Instructions Printed Discharge Instructions: DI for Pneumonia -- Adult Print Language: BURKINAN
--- NOTE | 2017-07-11 02:02 | PDOC ---
Attending Attestation - Resident Resident Name: Karla Fallon - ED Attending Attestation I have performed the following: I have examined & evaluated the patient, The case was reviewed & discussed with the resident, I agree w/resident's findings & plan, Exceptions are as noted - HPI HPI: 07/11/17 02:12 61 F with h/o DVT noncompliant with coumadin, opiate abuse, presenting to ER for medical clearance. Pt was seen earlier today by myself for fall at rehab facility. Pt was found to have positive Ddimer but left AMA prior to obtaining CTPE. She presents to ER now because she was not allowed back without medical clearance. Pt denies any complaints currently. Denies CP/SOB. Denies F/C. Denies lightheadedness. - Physicial Exam PE: 07/11/17 02:14 "GENERAL: Awake, alert, and fully oriented, in no acute distress HEAD: No signs of trauma EYES: PERRLA, EOMI, sclera anicteric, conjunctiva clear ENT: Auricles normal inspection, hearing grossly normal, nares patent, oropharynx clear without exudates. Moist mucosa NECK: Nontender, no stepoffs, Normal ROM, supple, no lymphadenopathy, JVD, or masses LUNGS: Breath sounds equal, clear to auscultation bilaterally. No wheezes, and no crackles HEART: Regular rate and rhythm, normal S1 and S2, no murmurs, rubs or gallops ABDOMEN: Soft, nontender, normoactive bowel sounds. No guarding, no rebound. No masses EXTREMITIES: Normal range of motion, no edema. No clubbing or cyanosis. No cords, erythema, or tenderness NEUROLOGICAL: Cranial nerves II through XII intact. 5/5 strength and sensation in all extremities, Normal speech, normal gait SKIN: Warm, Dry, normal turgor, no rashes or lesions noted." - Medical Decision Making 07/11/17 02:14 61 F with positive Ddimer earlier today, now with no symptoms. Will obtain CTPE to r/o PE. - CTPE CT negative for PE. Given clinical concern for PNA, pt started on levaquin. Vitals stable, pt clinically well appearing. Stable for DC back to rehab facility.
[2017-07-11 02:21] VITALS: TEMP 97.9; BMI 18.3
[2017-07-11] MEDS ORDERED: LEVOFLOXACIN 500 MG IVPB 100 ML IVPB ONE ×2 (04:48→05:24)
[2017-07-11 07:35] VITALS: BP 131/74; PULSE 69
== END 2017-07-11 06:37 ==
LOC: JER 01:36
DX: J18.9 Pneumonia, unspecified organism (principal); W18.39XA Other fall on same level, initial encounter; Y93.9 Activity, unspecified; Y92.238 Other place in hospital as the place of occurrence of the external cause; F17.210 Nicotine dependence, cigarettes, uncomplicated
CPT/HCPCS: 71275-TC; 99282-25

== ENCOUNTER 2019-11-01 15:40 | Inpatient (IN) | payer OTHER ==
[2019-11-01 18:17] VITALS: BMI 24.0
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
[2019-11-01] MEDS ORDERED: ALBUTEROL SO4 8 GM HFA INHALER IH PRN (20:01)
[2019-11-01] MEDS ORDERED: MENTHOL/PHENOL 1 EACH UD MM PRN (20:02)
[2019-11-01] MEDS ORDERED: BISMUTH SUBSALICYLATE 524 MG/30 ML UD PO PRN (20:02)
[2019-11-01] MEDS ORDERED: guaiFENesin 200 MG/10 ML 10 ML UNIT-DOSE CUPS PO PRN (20:02)
[2019-11-01] MEDS ORDERED: hydrOXYzine PAMOATE 25 MG CAPSULE (FP) PO PRN (20:02)
[2019-11-01] MEDS ORDERED: MAG HYDROX/AL HYDROX/SIMETH 30 ML UNIT-DOSE CUP PO PRN (20:02)
[2019-11-01] MEDS ORDERED: MAGNESIUM HYDROX 2400MG/30ML ORAL SUSPENSION 30 ML CUP PO PRN (20:02)
[2019-11-01] MEDS ORDERED: IBUPROFEN 400 MG TABLET (FP) PO PRN (20:02)
[2019-11-01] MEDS ORDERED: MAGNESIUM CITRATE 300 ML BOTTLE PO PRN (20:02)
[2019-11-01] MEDS ORDERED: ACETAMINOPHEN 325 MG TABLET (FP) PO PRN ×2 (20:02)
[2019-11-01] MEDS ORDERED: MELATONIN 5 MG TABLETS PO PRN (20:02)
[2019-11-01] MEDS ORDERED: chlordiazePOXIDE HCL 10 MG CAPSULE PO PRN (20:03)
[2019-11-01] MEDS ORDERED: ALBUTEROL SO4 0.083% IH SOL 2.5 MG/3 ML VIAL.NEB. NEB PRN (20:03)
[2019-11-01] MEDS ORDERED: diphenhydrAMINE HCL 50 MG CAPSULE PO PRN (22:00)
[2019-11-01] MEDS ORDERED: THIAMINE HCL 100 MG TABLET (FP) PO SCH (22:00)
[2019-11-01] MEDS ORDERED: diphenhydrAMINE HCL 25 MG CAPSULE (FP) PO ONE (22:40)
[2019-11-01] MEDS: chlordiazePOXIDE HCL 25 MG CAPSULE PO SCH (22:40)
[2019-11-01] MEDS: ASPIRIN 81 MG CHEWABLE TABLETS PO SCH (22:41)
[2019-11-02] MEDS: chlordiazePOXIDE HCL 25 MG CAPSULE PO SCH (05:57)
[2019-11-02] MEDS ORDERED: METHADONE HCL 10 MG TABLET ONE (09:10)
[2019-11-02] MEDS ORDERED: METHADONE HCL 40 MG DISPERSABLE TABLET ONE (09:11)
[2019-11-02] MEDS: ASPIRIN 81 MG CHEWABLE TABLETS PO SCH (09:15)
[2019-11-02] MEDS: METHADONE 40 MG, METHADONE 10 MG PO ONE ×2 (09:31→09:35)
[2019-11-02 09:44] LABS: HEMATOCRIT 33.6 % (32.4-45.2); HEMOGLOBIN 11.4 GM/dL (10.7-15.3); MCH 31.2 pg (25.7-33.7); MCHC 33.8 g/dl (32.0-36.0); MEAN CELL VOLUME 92.3 fl (80-96); MEAN PLT VOLUME 7.5 fl (7.5-11.1); PLATELET COUNT 351 K/MM3 (134-434); RBC 3.64 M/mm3 (3.60-5.2); RDW 15.3 % (11.6-15.6); WHITE BLOOD COUNT 4.7 K/mm3 (4.0-10.0)
[2019-11-02] MEDS ORDERED: METHADONE HCL 10 MG TABLET PO ONE (10:00)
[2019-11-02] MEDS ORDERED: PRENATAL VITAMINS W/ FOLIC ACID TABLET (FP) PO SCH (10:00)
[2019-11-02] MEDS ORDERED: METHADONE 40 MG, METHADONE 10 MG PO ONE (10:00)
[2019-11-02 10:07] LABS: ALBUMIN 3.2 g/dl (3.4-5.0); BILIRUBIN,TOTAL 0.4 mg/dL (0.2-1); BLOOD UREA NITROGEN 10.6 mg/dL (7-18); CALCIUM 8.7 mg/dL (8.5-10.1); CREATININE 0.7 mg/dL (0.55-1.3); POTASSIUM 4.3 mmol/L (3.5-5.1); TOT PROT 5.7 g/dl (6.4-8.2)
[2019-11-02 12:11] LABS: RPR REACTIVE 1:4 (NONREACTIVE)
[2019-11-02 12:12] LABS: TREPONEMA ANTIBODY PREVIOUSLY REACTIVE (NONREACTIVE)
--- NOTE | 2019-11-02 12:51 | CONSULT ---
[facility] Psychiatric Consult - Data Date of interview: 11/02/19 Admission source: [facility] Identifying data: Patient is approached for psychiatric evaluation. Ms Longo declines. " Leave me alone. I am not here to see psychiatrists. [facility] staff is made aware.
[2019-11-02 13:16] VITALS: BP 102/64; PULSE 69; TEMP 97
--- NOTE | 2019-11-02 15:32 | DS ---
[facility] Detox Discharge Summary Admission Date: 11/01/19 Discharge Date: 11/02/19 - History Present History: Alcohol Dependence Additional Comments: 64 years old female admitted on 11/01/19 for alcohol withdrawal sx management treated with librium detox regimen patient is alert oriented x 3 speech clearly coherently steady gait social with peers in day room patient insists to leave the detox unit that "I want to see my doctor new" reports newly diagnosed positive rpr treated with one dose of penicilline IM next dose 11/05/18 was scheduled by "my doctor" patient refuses exist physical examination case discussed with the nurse against medical advice is appropriated - Physical Exam Results Vital Signs: Vital Signs Temperature 97.0 F L 11/02/19 13:15 Pulse Rate 69 11/02/19 13:15 Respiratory Rate 16 11/02/19 13:15 Blood Pressure 102/64 11/02/19 13:15 O2 Sat by Pulse Oximetry (%) Pertinent Admission Physical Exam Findings: alcohol withdrawal Laboratory Last Values WBC 4.7 K/mm3 (4.0-10.0) 11/02/19 07:20 RBC 3.64 M/mm3 (3.60-5.2) 11/02/19 07:20 Hgb 11.4 GM/dL (10.7-15.3) 11/02/19 07:20 Hct 33.6 % (32.4-45.2) 11/02/19 07:20 MCV 92.3 fl (80-96) 11/02/19 07:20 MCH 31.2 pg (25.7-33.7) 11/02/19 07:20 MCHC 33.8 g/dl (32.0-36.0) 11/02/19 07:20 RDW 15.3 % (11.6-15.6) 11/02/19 07:20 Plt Count 351 K/MM3 (134-434) 11/02/19 07:20 MPV 7.5 fl (7.5-11.1) 11/02/19 07:20 Sodium 139 mmol/L (136-145) 11/02/19 07:20 Potassium 4.3 mmol/L (3.5-5.1) 11/02/19 07:20 Chloride 108 mmol/L (98-107) H 11/02/19 07:20 Carbon Dioxide 29 mmol/L (21-32) 11/02/19 07:20 Anion Gap 3 MMOL/L (8-16) L 11/02/19 07:20 BUN 10.6 mg/dL (7-18) 11/02/19 07:20 Creatinine 0.7 mg/dL (0.55-1.3) 11/02/19 07:20 Est GFR (CKD-EPI)AfAm 107.62 11/02/19 07:20 Est GFR (CKD-EPI)NonAf 92.86 11/02/19 07:20 Random Glucose 92 mg/dL (74-106) 11/02/19 07:20 Calcium 8.7 mg/dL (8.5-10.1) 11/02/19 07:20 Total Bilirubin 0.4 mg/dL (0.2-1) 11/02/19 07:20 AST 16 U/L (15-37) 11/02/19 07:20 ALT 18 U/L (13-61) 11/02/19 07:20 Alkaline Phosphatase 124 U/L (45-117) H 11/02/19 07:20 Total Protein 5.7 g/dl (6.4-8.2) L 11/02/19 07:20 Albumin 3.2 g/dl (3.4-5.0) L 11/02/19 07:20 RPR Titer Reactive 1:4 (NONREACTIVE) H 11/02/19 07:20 T.pallidum Ab (MHA) Previously reactive (NONREACTIVE) 11/02/19 07:20 lab noted rpr 1:4 patient will received penicilline IM from her doctor next dose 11/05/19 - Treatment Hospital Course: Detox Protocol Followed Patient has Accepted a Rehab Referral to: community support approach - Medication Discharge Medications: Ambulatory Orders Zolpidem Tartrate [Ambien] 10 mg PO HS 07/15/12 Aspirin [ASA -] 81 mg PO DAILY 07/07/17 Aripiprazole [Abilify -] 10 mg PO DAILY #30 tablet 07/08/17 Quetiapine Fumarate [Seroquel -] 50 mg PO BID #60 tablet 07/08/17 Albuterol Sulfate Inhaler - [Ventolin HFA Inhaler -] 1 puff IN QID PRN 07/10/17 Diphenhydramine [Benadryl Capsule -] 50 mg PO HS PRN 07/10/17 Albuterol Sulfate Inhaler - [Ventolin HFA Inhaler -] 2 puff IH Q4H PRN #1 inhaler 07/11/17 - Diagnosis (1) Syphilis Status: Chronic (2) Alcohol dependence with uncomplicated withdrawal Status: Acute (3) Asthma Status: Chronic (4) Methadone maintenance therapy patient Status: Chronic (5) Nicotine dependence Status: Acute Qualifiers: Nicotine product type: cigarettes Substance use status: in withdrawal Qualified Code(s): F17.213 - Nicotine dependence, cigarettes, with withdrawal - AMA Did Patient Leave Against Medical Advice: Yes
[2019-11-03] MEDS ORDERED: chlordiazePOXIDE 5 MG CAPSULE PO SCH (05:00)
[2019-11-03] MEDS ORDERED: METHADONE HCL 10 MG TABLET PO SCH (06:00)
[2019-11-03] MEDS ORDERED: METHADONE 40 MG, METHADONE 10 MG PO SCH ×2 (06:00)
[2019-11-04] MEDS ORDERED: chlordiazePOXIDE HCL 10 MG CAPSULE PO PRN
[2019-11-04] MEDS ORDERED: chlordiazePOXIDE HCL 10 MG CAPSULE PO SCH (05:00)
--- NOTE | 2019-11-04 12:02 | EKG ---
Test Reason : Blood Pressure : / mmHG Vent. Rate : 064 BPM Atrial Rate : 064 BPM P-R Int : 166 ms QRS Dur : 076 ms QT Int : 442 ms P-R-T Axes : 063 -21 036 degrees QTc Int : 455 ms POOR DATA QUALITY, INTERPRETATION MAY BE ADVERSELY AFFECTED NORMAL SINUS RHYTHM NORMAL ECG WHEN COMPARED WITH ECG OF 10-JUL-2017 18:07, NO SIGNIFICANT CHANGE WAS FOUND Confirmed by MIRIAN CARIAS, KARAN ([id number]) on 11/04/2019 12:02:07 PM Referred By: Confirmed By:KARAN VELA MD
[2019-11-05] MEDS ORDERED: chlordiazePOXIDE HCL 10 MG CAPSULE PO ONE (05:00)
== END 2019-11-02 13:20 | disposition left against medical advice (07) | DRG 770 ==
LOC: YASAS 15:40 → Y3N 20:28
PROVIDERS: ADMIT Allergy & Immunology; ATTEND Allergy & Immunology
PROC: HZ2ZZZZ Detoxification Services for Substance Abuse Treatment (ICD-10-PCS; principal; 2019-11-01)
DX: F10.230 Alcohol dependence with withdrawal, uncomplicated (principal); F11.20 Opioid dependence, uncomplicated; F14.20 Cocaine dependence, uncomplicated; F17.213 Nicotine dependence, cigarettes, with withdrawal; J45.909 Unspecified asthma, uncomplicated; Z87.42 Personal history of other diseases of the female genital tract
CPT/HCPCS: 36415; 80053; 85027; 86593; 86780; 93005; 93010

== ENCOUNTER 2020-06-05 15:09 | Inpatient (IN) | payer OTHER ==
--- NOTE | 2020-06-05 16:37 | BHS.RME ---
Substance Use & Tx History - Substance Use History Alcohol Substance amount: 2 pints Frequency of use: Daily Substance route: Oral Date of Last Use: 06/05/20 Heroin Substance amount: 1-2 bags Frequency of use: Daily Substance route: Inhalation (ex: sniffing or snorting) Date of Last Use: 06/05/20 Cocaine- Powder Substance amount: 1 pack Frequency of use: Less than 3 times per week Substance route: Smoking Date of Last Use: 06/04/20 - Last Treatment Date of last treatment: Methadone maintenance LDM today and last detox 11/2019 Treatment type: Substance Use Disorder (ISHAN) Where was last treatment: Detox Physical/Psych/Mental Status - Behavior General Behavior: Increased activity (restlessness, agitation) Eye Contact: Decreased - Cooperativeness Cooperativeness: Reluctant - Physical Health Problems Is patient presently having any pain?: No Does patient presently have any injuries (include location): No Does patient currently have a fever: No Is patient : No CIWA Nausea/Vomitin-Mild Nausea/No Vomiting Muscle Tremors: 1-None Visible, but [place] Anxiety: 4-Mod. Anxious/Guarded Agitation: 4-Moderately Restless Paroxysmal Sweats: No Perspiration Orientation: 1-Uncertain about Date Tacttile Disturbances: 0-None Auditory Disturbances: 1-Very Mild Visual Disturbances: 1-Very Mild Sensitivity Headache: 0-None Present CIWA-Ar Total Score: 13
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
[2020-06-05] MEDS ORDERED: MAGNESIUM HYDROX 2400MG/30ML ORAL SUSPENSION 30 ML CUP PO PRN (17:33)
[2020-06-05] MEDS ORDERED: BISMUTH SUBSALICYLATE 524 MG/30 ML UD PO PRN (17:33)
[2020-06-05] MEDS ORDERED: MAG HYDROX/AL HYDROX/SIMETH 30 ML UNIT-DOSE CUP PO PRN (17:33)
[2020-06-05] MEDS ORDERED: METHOCARBAMOL 500 MG TABLET PO PRN (17:33)
[2020-06-05] MEDS ORDERED: IBUPROFEN 400 MG TABLET (FP) PO PRN (17:33)
[2020-06-05] MEDS ORDERED: NICOTINE POLACRILEX 2 MG GUM BUC PRN (17:33)
[2020-06-05] MEDS ORDERED: MENTHOL/PHENOL 1 EACH UD MM PRN (17:33)
[2020-06-05] MEDS ORDERED: chlordiazePOXIDE HCL 10 MG CAPSULE PO PRN (17:33)
[2020-06-05] MEDS ORDERED: MAGNESIUM CITRATE 300 ML BOTTLE PO PRN (17:33)
[2020-06-05] MEDS ORDERED: ONDANSETRON *ODT* 4 MG TABLET SL ONE (17:33)
[2020-06-05] MEDS ORDERED: ACETAMINOPHEN 325 MG TABLET (FP) PO PRN ×2 (17:33)
[2020-06-05 18:04] VITALS: BMI 22.1
[2020-06-05] MEDS ORDERED: ALBUTEROL SO4 HFA INHALER IH PRN (18:35)
[2020-06-05] MEDS ORDERED: hydrOXYzine PAMOATE 25 MG CAPSULE (FP) PO PRN (18:35)
[2020-06-05] MEDS ORDERED: FAMOTIDINE 10 MG TABLET PO SCH (22:00)
[2020-06-05] MEDS ORDERED: MELATONIN 5 MG TABLETS PO SCH (22:00)
[2020-06-05] MEDS: chlordiazePOXIDE HCL 25 MG CAPSULE PO SCH (22:43)
[2020-06-05] MEDS: FAMOTIDINE 20 MG TABLET PO SCH (22:43)
[2020-06-05] MEDS: THIAMINE HCL 100 MG TABLET (FP) PO SCH ×2 (22:43→22:46)
[2020-06-06] MEDS: chlordiazePOXIDE HCL 25 MG CAPSULE PO SCH (06:08)
[2020-06-06] MEDS ORDERED: METHADONE HCL 10 MG TABLET PO SCH (07:45)
[2020-06-06] MEDS ORDERED: METHADONE 40 MG, METHADONE 10 MG PO ONE (08:45)
[2020-06-06] MEDS ORDERED: METHADONE HCL 10 MG TABLET ONE (09:03)
[2020-06-06] MEDS ORDERED: METHADONE HCL 40 MG DISPERSABLE TABLET ONE (09:04)
--- NOTE | 2020-06-06 09:37 | PN ---
S CIWA - CIWA Score Nausea/Vomitin-Mild Nausea/No Vomiting Muscle Tremors: 3 Anxiety: 3 Agitation: 1-Slight > Activity Paroxysmal Sweats: No Perspiration Orientation: 0-Oriented Tacttile Disturbances: 0-None Auditory Disturbances: 0-None Visual Disturbances: 2-Mild Sensitivity Headache: 1-Very Mild CIWA-Ar Total Score: 11 S Progress Note (SOAP) Subjective: 64 years old female was admitted on 06/05/20 for alcohol withdrawal sx management treating with librium detox regiment taking methadone 50mg po daily ate 30% of breakfast ensure 120 ml po tid with meals feels tired prefers to stay in bed resting today limited conversation with staff Objective: 06/06/20 09:38 Vital Signs - 24 hr 06/05/20 06/05/20 06/05/20 17:46 18:54 21:04 Temperature 97 F L 96.8 F L 98.4 F Pulse Rate 73 59 L 64 Respiratory 19 18 16 Rate Blood Pressure 110/63 133/71 123/72 O2 Sat by Pulse 100 100 Oximetry (%) 06/06/20 06:30 Temperature 96.9 F L Pulse Rate 66 Respiratory 18 Rate Blood Pressure 99/62 O2 Sat by Pulse 98 Oximetry (%) 06/06/20 09:39 lab pending Assessment: 06/06/20 09:39 alcohol withdrawal methadone program Plan: librium regiment methadone 50mg po daily
[2020-06-06] MEDS: FAMOTIDINE 20 MG TABLET PO SCH (09:42)
[2020-06-06] MEDS ORDERED: ASPIRIN 81 MG CHEWABLE TABLETS PO SCH (10:00)
[2020-06-06] MEDS ORDERED: NICOTINE 7 MG/24 HOURS TOPICAL PATCH TD SCH (10:00)
[2020-06-06] MEDS ORDERED: PRENATAL VITAMINS W/ FOLIC ACID TABLET (FP) PO SCH (10:00)
[2020-06-06 10:12] VITALS: BP 109/60; PULSE 70; TEMP 98.4
--- NOTE | 2020-06-06 11:43 | DS ---
[facility] Detox Discharge Summary Admission Date: 06/05/20 Discharge Date: 06/06/20 - History Present History: Alcohol Dependence, MMTP Additional Comments: 64 years old female was admitted on 06/05/20 for alcohol withdrawal sx management treated with librium detox regiment ms stauffer insists to leave the detox due to that ms stauffer wants the methadone to be jacqueline off ms stauffer is taking methadone 50 mg po daily and wants to be off to zero methadone encourage ms stauffer to discus methadone jacqueline with methadone program or dosage up to 30mg can be jacqueline off at the [facility] with the methadone program General Appearance: Yes: Nourished, Mild Distress, Tremorous, Irritable, Anxious HEENTM: Yes: Hearing grossly Normal, Normocephalic, Normal Voice, BERNY (Pupils = 2 mm), Pharynx Normal, Nasal Congestion Respiratory: Yes: Lungs Clear (Pulse Ox + 99 %), Normal Breath Sounds, No Respiratory Distress Neck: Yes: No masses,lesions,Nodules, Supple Breast: Yes: Breast Exam Deferred Cardiology: Yes: Regular Rhythm, Regular Rate (HR: 60), S1, S2 Abdominal: Yes: Normal Bowel Sounds, Flat, Soft Genitourinary: Yes: Within Normal Limits Back: Yes: Normal Inspection Musculoskeletal: Yes: full range of Motion, Gait Steady Extremities: Yes: Normal Capillary Refill, Tremors (faint felt) Neurological: Yes: Fully Oriented, Alert, Motor Strength 5/5, Other (Irritated/abrupt speech) Integumentary: Yes: Normal Color, Dry (decreased skin turgor), Warm, Other (Laceration skin outer cuticle (R) great toe) Lymphatic: Yes: Within Normal Limits Pertinent Past History: time for discharge 46 minutes treatment team met with ms stauffer to discuss benefits of librium regiment completion ms stauffer insists to leave due to not able to jacqueline off methadone from 50mg - Physical Exam Results Vital Signs: Vital Signs Temperature 98.4 F 06/06/20 08:59 Pulse Rate 70 06/06/20 08:59 Respiratory Rate 18 06/06/20 08:59 Blood Pressure 109/60 06/06/20 08:59 O2 Sat by Pulse Oximetry (%) 98 06/06/20 06:30 Pertinent Admission Physical Exam Findings: alcohol withdrawal Vital Signs - 24 hr 06/05/20 06/05/20 06/05/20 17:46 18:54 21:04 Temperature 97 F L 96.8 F L 98.4 F Pulse Rate 73 59 L 64 Respiratory 19 18 16 Rate Blood Pressure 110/63 133/71 123/72 O2 Sat by Pulse 100 100 Oximetry (%) 06/06/20 06/06/20 06:30 08:59 Temperature 96.9 F L 98.4 F Pulse Rate 66 70 Respiratory 18 18 Rate Blood Pressure 99/62 109/60 O2 Sat by Pulse 98 Oximetry (%) Laboratory Tests 06/06/20 06/06/20 08:30 08:30 WBC 4.9 RBC 3.89 Hgb 11.9 Hct 35.7 MCV 91.8 MCH 30.5 MCHC 33.2 RDW 15.9 H Plt Count 371 MPV 7.9 Sodium 141 Potassium 4.2 Chloride 106 Carbon Dioxide 27 Anion Gap 8 BUN 14.4 Creatinine 0.7 Est GFR (CKD-EPI)AfAm 107.62 Est GFR (CKD-EPI)NonAf 92.86 Random Glucose 89 Calcium 9.0 Total Bilirubin 0.7 AST 18 ALT 17 Alkaline Phosphatase 93 Total Protein 6.0 L Albumin 3.2 L lab noted - Treatment Hospital Course: Detox Protocol Followed, Detoxed Safely, Responded well, Discharged Condition Good, Rehab Referral Accepted Patient has Accepted a Rehab Referral to: Critical access hospital Services - Medication Discharge Medications: Ambulatory Orders Aspirin [ASA -] 81 mg PO DAILY 07/07/17 Aripiprazole [Abilify -] 10 mg PO DAILY #30 tablet 07/08/17 Albuterol Sulfate Inhaler - [Ventolin HFA Inhaler -] 1 puff IN QID PRN 07/10/17 Diphenhydramine [Benadryl Capsule -] 25 mg PO HS PRN 07/10/17 Hydroxyzine Pamoate 25 mg PO PRN 06/05/20 Sertraline HCl [Zoloft -] 25 mg PO DAILY 06/05/20 - Diagnosis (1) Alcohol dependence with uncomplicated withdrawal Status: Acute (2) Methadone maintenance therapy patient Status: Chronic (3) Nicotine dependence Status: Acute Qualifiers: Nicotine product type: cigarettes Substance use status: in withdrawal Qualified Code(s): F17.213 - Nicotine dependence, cigarettes, with withdrawal (4) Syphilis Status: Chronic (5) Substance induced mood disorder Status: Suspected - AMA Did Patient Leave Against Medical Advice: Yes CIWA Score - CIWA Score Nausea/Vomitin-Mild Nausea/No Vomiting Muscle Tremors: 3 Anxiety: 3 Agitation: 1-Slight > Activity Paroxysmal Sweats: No Perspiration Orientation: 0-Oriented Tacttile Disturbances: 0-None Auditory Disturbances: 0-None Visual Disturbances: 2-Mild Sensitivity Headache: 1-Very Mild CIWA-Ar Total Score: 11
[2020-06-06 13:07] LABS: HEMATOCRIT 35.7 % (32.4-45.2); HEMOGLOBIN 11.9 GM/dL (10.7-15.3); MCH 30.5 pg (25.7-33.7); MCHC 33.2 g/dl (32.0-36.0); MEAN CELL VOLUME 91.8 fl (80-96); MEAN PLT VOLUME 7.9 fl (7.5-11.1); PLATELET COUNT 371 K/MM3 (134-434); RBC 3.89 M/mm3 (3.60-5.2); RDW 15.9 % (11.6-15.6); WHITE BLOOD COUNT 4.9 K/mm3 (4.0-10.0)
[2020-06-06 13:13] LABS: POTASSIUM 4.2 mmol/L (3.5-5.1)
[2020-06-06 13:20] LABS: ALBUMIN 3.2 g/dl (3.4-5.0); BILIRUBIN,TOTAL 0.7 mg/dL (0.2-1); BLOOD UREA NITROGEN 14.4 mg/dL (7-18); CREATININE 0.7 mg/dL (0.55-1.3)
[2020-06-06] MEDS ORDERED: BACITRACIN 0.9 GM PACKET TP SCH (20:08)
[2020-06-07] MEDS ORDERED: chlordiazePOXIDE 5 MG CAPSULE PO SCH (05:00)
[2020-06-07] MEDS ORDERED: METHADONE 40 MG, METHADONE 10 MG PO SCH (06:00)
[2020-06-08] MEDS ORDERED: chlordiazePOXIDE HCL 10 MG CAPSULE PO PRN
[2020-06-08] MEDS ORDERED: chlordiazePOXIDE HCL 10 MG CAPSULE PO SCH (05:00)
[2020-06-09] MEDS ORDERED: chlordiazePOXIDE HCL 10 MG CAPSULE PO ONE (05:00)
== END 2020-06-06 11:39 | disposition left against medical advice (07) | DRG 770 ==
LOC: YASAS 15:09 → Y3N 17:47
PROVIDERS: ADMIT Allergy & Immunology; ATTEND Allergy & Immunology
PROC: HZ2ZZZZ Detoxification Services for Substance Abuse Treatment (ICD-10-PCS; principal; 2020-06-05)
DX: F10.230 Alcohol dependence with withdrawal, uncomplicated (principal); F11.20 Opioid dependence, uncomplicated; F14.20 Cocaine dependence, uncomplicated; F17.213 Nicotine dependence, cigarettes, with withdrawal; F19.24 Other psychoactive substance dependence with psychoactive substance-induced mood disorder; J45.909 Unspecified asthma, uncomplicated; A53.0 Latent syphilis, unspecified as early or late; L60.8 Other nail disorders; R63.8 Other symptoms and signs concerning food and fluid intake; R23.8 Other skin changes; Z56.0 Unemployment, unspecified; Z59.0 Homelessness
CPT/HCPCS: 36415; 80053; 85027; 86593; 86780; U0003

== ENCOUNTER 2023-04-25 13:08 | Inpatient (IN) | payer OTHER ==
[2023-04-25 13:42] VITALS: BMI 18.7
[2023-04-25] MEDS ORDERED: NICOTINE 10 MG CARTRIDGE (INHALER) IH PRN (14:37)
[2023-04-25] MEDS ORDERED: MAG HYDROX/AL HYDROX/SIMETH 30 ML UNIT-DOSE CUP PO PRN (14:37)
[2023-04-25] MEDS ORDERED: NICOTINE POLACRILEX 2 MG GUM BUC PRN (14:37)
[2023-04-25] MEDS ORDERED: ACETAMINOPHEN 325 MG TABLET (FP) PO PRN (14:37)
[2023-04-25] MEDS ORDERED: POLYETHYLENE GLYCOL (HEALTHYLAX) 3350 17 GM PACKET PO PRN (14:37)
[2023-04-25] MEDS ORDERED: MAGNESIUM HYDROX 2400MG/30ML ORAL SUSPENSION 30 ML CUP PO PRN (14:37)
[2023-04-25] MEDS ORDERED: DICYCLOMINE HCL 10 MG CAPSULE PO PRN (14:37)
[2023-04-25] MEDS ORDERED: hydrOXYzine PAMOATE 25 MG CAPSULE (FP) PO PRN (14:37)
[2023-04-25] MEDS ORDERED: IBUPROFEN 400 MG TABLET (FP) PO PRN (14:37)
[2023-04-25] MEDS ORDERED: BENZOCAINE/MENTHOL (CHLORASEPTIC ) LOZENGE MM PRN (14:37)
[2023-04-25] MEDS ORDERED: guaiFENesin 600 MG TABLET.ER (FP) PO PRN (14:37)
[2023-04-25] MEDS ORDERED: ONDANSETRON *ODT* 4 MG TABLET SL PRN (14:37)
[2023-04-25] MEDS ORDERED: METHOCARBAMOL 500 MG TABLET PO PRN (14:37)
[2023-04-25] MEDS ORDERED: NALOXONE HCL 0.4 MG/ML VIAL IM PRN (14:37)
[2023-04-25] MEDS ORDERED: NALOXONE HCL (KLOXXADO) 8 MG SPRAY NS PRN (14:37)
[2023-04-25] MEDS ORDERED: LOPERAMIDE HCL 2 MG CAPSULE PO PRN (14:37)
[2023-04-25] MEDS ORDERED: IBUPROFEN 600 MG TABLET (FP) PO PRN (14:37)
[2023-04-25] MEDS ORDERED: BENZONATATE 200 MG CAPSULE PO PRN (14:37)
[2023-04-25] MEDS ORDERED: BISMUTH SUBSALICYLATE 262 MG/15 ML BTL PO PRN (14:37)
[2023-04-25] MEDS: PRENATAL VITAMINS W/ FOLIC ACID TABLET (FP) PO SCH (14:46)
[2023-04-25 21:12] VITALS: RESP 16
[2023-04-25] MEDS ORDERED: MELATONIN 5 MG TABLETS PO SCH (22:00)
[2023-04-25] MEDS ORDERED: THIAMINE HCL 100 MG TABLET (FP) PO SCH (22:00)
[2023-04-26] MEDS ORDERED: methaDONE HCL 10 MG TABLET PO SCH (10:00)
[2023-04-26] MEDS ORDERED: methaDONE 80 MG, methaDONE 20 MG PO SCH (10:11)
[2023-04-26] MEDS: PRENATAL VITAMINS W/ FOLIC ACID TABLET (FP) PO SCH (10:17)
[2023-04-26] MEDS ORDERED: PNEUMOC 20-VAL CONJ-DIP CRM/PF 0.5 ML SYRINGE IM ONE (12:00)
[2023-04-26 18:36] VITALS: BP 115/51; PULSE 60; TEMP 97.3
== END 2023-04-26 17:30 | disposition home or self-care (01) | DRG 773 ==
LOC: YASAS 13:08 → Y6N 15:03
PROVIDERS: ADMIT Allergy & Immunology; ATTEND Surgery
PROC: HZ2ZZZZ Detoxification Services for Substance Abuse Treatment (ICD-10-PCS; principal; 2023-04-25)
DX: F10.20 Alcohol dependence, uncomplicated (principal); F11.20 Opioid dependence, uncomplicated; F14.20 Cocaine dependence, uncomplicated; F17.210 Nicotine dependence, cigarettes, uncomplicated; J45.30 Mild persistent asthma, uncomplicated; E05.90 Thyrotoxicosis, unspecified without thyrotoxic crisis or storm
CPT/HCPCS: 87635; 87811; 90677